=== PATIENT | male | born 1950 | race African-American/Black ===

== ENCOUNTER 2018-09-07 12:08 | Observation (INO) ==
[2018-09-07 13:38] LABS: Basophils % 0.2 % (0.0-0.8); Eosinophils % 0.4 % (0.00-10.9); Hematocrit 40.1 VOL% (42.0-52.0); Hemoglobin 13.1 GM/DL (14.0-18.0); Immature Granulocytes % 0.4 %; Immature Granulocytes Absolute 0.05 #; Lymphocytes # 1.4 10*3/uL (1.4-4.0); Lymphocytes % 12.8 % (21.2-54.2); Mean Corpuscular HGB Conc 32.7 GM/DL (32-36); Mean Corpuscular Hemoglobin 30 PG (27-34); Mean Corpuscular Volume 92.2 FL (87-102); Mean Platelet Volume 11.2 FL (9.6-12.0); Monocytes # 0.7 10*3/uL (0.11-0.8); Monocytes % 5.9 % (1.7-12.7); Neutrophils # 8.9 10*3/uL (1.4-7.4); Neutrophils % 80.3 % (38.7-73.9); Platelet Count 254 T/CUMM (130-400); Red Blood Count 4.35 MC/CUMM (3.8-5.5); Red Cell Distribution Width 13.7 % (9.3-17.3); White Blood Count 11.1 T/CUMM (4-12)
[2018-09-07 13:59] LABS: Albumin 3.7 G/DL (3.4-5.0); Bilirubin,Total 0.4 MG/DL (0.2-1.0); Calcium 9.4 MG/DL (8.5-10.1); Osmolality,Calculated 270.2 MOS/KG (273-304); Potassium 3.9 MMOL/L (3.5-5.1); Thyroid Stimulating Hormone 0.387 uIU/ml (0.358-3.74); Total Protein 8.8 G/DL (6.4-8.3)
[2018-09-07 15:01] LABS: Apearance,Urine CLEAR (Clear); Bilirubin,Urine Negative (Negative); Blood, Urine Negative (Negative); Glucose,Urine (UA) Negative (Negative); Ketones,Urine Negative (Negative); Mucus,Urine Occasional /LPF (Occasional); Nitrite,Urine Negative (Negative); Protein,Urine Negative; RBC,Urine 1 /HPF (0-4); Squamous Epithelial Cell,Urine Occasional /HPF (0-10); Urine Color Yellow (Yellow); Urine Specific Gravity 1.009 (1.001-1.035); Urine Urobilinogen < 2.0 EU/DL (0.2-1.0); WBC,Urine <1 /HPF (0-6)
[2018-09-07] MEDS ORDERED: GLUCAGON 1 MG VIAL IM PRN (15:25)
[2018-09-07] MEDS ORDERED: ONDANSETRON 4 MG/2 ML VIAL IV PRN (15:25)
[2018-09-07] MEDS ORDERED: DEXTROSE 50% 25 GM/50 ML VIAL IV PRN (15:25)
[2018-09-07] MEDS: INSULIN REGULAR 100 UNIT/ML SUBCUT SCH ×2 (17:02→20:51)
[2018-09-07] MEDS: SODIUM CHLORIDE 0.9% 1,000 ML IV SCH (17:07)
[2018-09-07] MEDS: BACLOFEN 10 MG TABLET PO SCH (20:51)
[2018-09-07] MEDS: metFORMIN 500 MG TABLET PO SCH (20:51)
[2018-09-07] MEDS: CARVEDILOL 25 MG TABLET PO SCH (20:51)
[2018-09-08] MEDS: SODIUM CHLORIDE 0.9% 1,000 ML IV SCH (04:29)
[2018-09-08 05:20] LABS: Basophils % 0.1 % (0.0-0.8); Eosinophils # 0.1 10*3/uL (0.0-0.87); Eosinophils % 0.6 % (0.00-10.9); Hematocrit 37.8 VOL% (42.0-52.0); Immature Granulocytes % 0.5 %; Immature Granulocytes Absolute 0.05 #; Lymphocytes % 18.3 % (21.2-54.2); Mean Corpuscular HGB Conc 31.7 GM/DL (32-36); Mean Corpuscular Hemoglobin 29 PG (27-34); Mean Corpuscular Volume 91.5 FL (87-102); Mean Platelet Volume 11.3 FL (9.6-12.0); Monocytes # 0.8 10*3/uL (0.11-0.8); Monocytes % 7.1 % (1.7-12.7); Neutrophils # 7.9 10*3/uL (1.4-7.4); Neutrophils % 73.4 % (38.7-73.9); Platelet Count 235 T/CUMM (130-400); Red Blood Count 4.13 MC/CUMM (3.8-5.5); Red Cell Distribution Width 13.9 % (9.3-17.3); White Blood Count 10.8 T/CUMM (4-12)
[2018-09-08 05:48] LABS: Potassium 3.9 MMOL/L (3.5-5.1)
[2018-09-08] MEDS: INSULIN REGULAR 100 UNIT/ML SUBCUT SCH (07:16)
[2018-09-08 08:21] VITALS: BP 146/73
[2018-09-08] MEDS: metFORMIN 500 MG TABLET PO SCH (08:58)
[2018-09-08] MEDS: BACLOFEN 10 MG TABLET PO SCH (08:58)
[2018-09-08] MEDS: CARVEDILOL 25 MG TABLET PO SCH (08:59)
[2018-09-08] MEDS ORDERED: FUROSEMIDE 20 MG TABLET PO SCH (09:00)
[2018-09-08] MEDS ORDERED: VENLAFAXINE XR 75 MG CAPSULE PO SCH (09:00)
[2018-09-08] MEDS ORDERED: VALSARTAN/HCTZ 160-12.5 MG TABLET PO SCH (09:00)
[2018-09-08] MEDS ORDERED: amLODIPine 10 MG TABLET PO SCH (09:00)
[2018-09-08] MEDS ORDERED: PANTOPRAZOLE 40 MG TABLET PO SCH ×2 (09:00)
[2018-09-08] MEDS ORDERED: FLUoxetine 20 MG CAPSULE PO SCH (09:00)
[2018-09-08] MEDS ORDERED: ATORVASTATIN 20 MG TABLET PO SCH (09:00)
== END 2018-09-08 09:50 | disposition home or self-care (01) ==
LOC: N.ED 12:08 → N.EDINP 12:08 → N.2E 16:15
PROVIDERS: ADMIT Hospitalist; ATTEND Hospitalist

== ENCOUNTER 2019-03-06 19:56 | Observation (INO) ==
[2019-03-06 20:53] LABS: Basophils % 0.2 % (0.0-0.8); Eosinophils # 0.1 10*3/uL (0.0-0.87); Eosinophils % 0.5 % (0.00-10.9); Hematocrit 44.5 VOL% (42.0-52.0); Immature Granulocytes % 0.4 %; Immature Granulocytes Absolute 0.05 #; Lymphocytes # 1.8 10*3/uL (1.4-4.0); Lymphocytes % 14.6 % (21.2-54.2); Mean Corpuscular HGB Conc 31.5 GM/DL (32-36); Mean Corpuscular Volume 91.8 FL (87-102); Mean Platelet Volume 11.1 FL (9.6-12.0); Monocytes % 3.8 % (1.7-12.7); Neutrophils % 80.5 % (38.7-73.9); Platelet Count 220 T/CUMM (130-400); Red Blood Count 4.85 MC/CUMM (3.8-5.5); Red Cell Distribution Width 14.6 % (9.3-17.3); White Blood Count 12.5 T/CUMM (4-12)
[2019-03-06] MEDS ORDERED: SODIUM CHLORIDE 0.9% 500 ML IV STA ×2 (21:02→21:57)
[2019-03-06] MEDS ORDERED: LORazepam 2 MG/1 ML VIAL IV STA (21:02)
[2019-03-06 21:17] LABS: Apearance,Urine CLEAR (Clear); Bilirubin,Urine Negative (Negative); Blood, Urine Negative (Negative); Glucose,Urine (UA) Negative (Negative); Hyaline Casts,Urine 1 /LPF (0-3); Ketones,Urine Negative (Negative); Mucus,Urine Many /LPF (Occasional); Nitrite,Urine Negative (Negative); Protein,Urine Negative; RBC,Urine 2 /HPF (0-4); Squamous Epithelial Cell,Urine Occasional /HPF (0-10); Urine Color Yellow (Yellow); Urine Specific Gravity 1.019 (1.001-1.035); Urine Urobilinogen < 2.0 EU/DL (0.2-1.0); WBC,Urine 1 /HPF (0-6)
[2019-03-06 21:24] LABS: Barbiturates Screen,Urine Negative (Negative); Benzodiazepines Screen,Urine Negative (Negative); Cannabinoid Screen,Urine Negative (Negative); Opiate Screen,Urine Negative (Negative); Phencyclidine Screen,Urine Negative (Negative)
[2019-03-06 21:26] LABS: Albumin 3.7 G/DL (3.4-5.0); Bilirubin,Total 0.5 MG/DL (0.2-1.0); Calcium 9.4 MG/DL (8.5-10.1); Osmolality,Calculated 277.4 MOS/KG (273-304); Total Protein 8.7 G/DL (6.4-8.3)
[2019-03-06] MEDS ORDERED: MAGNESIUM SULF RIDER 2 GM in PREMIX 1 EACH IV STA (21:34)
[2019-03-06] MEDS ORDERED: diphenhydrAMINE CAP 25 MG CAPSULE PO PRN (23:29)
[2019-03-06] MEDS ORDERED: ACETAMINOPHEN 325 MG TABLET PO PRN (23:29)
[2019-03-06] MEDS ORDERED: ONDANSETRON 4 MG/2 ML VIAL IV PRN (23:29)
[2019-03-06] MEDS ORDERED: MORPHINE 4 MG/1 ML VIAL IV PRN (23:29)
[2019-03-06] MEDS ORDERED: NICOTINE 21 MG/24 HR PATCH TRANSDERM PRN (23:29)
[2019-03-07] LABS: Risk Ratio 2.85; Thyroid Stimulating Hormone 0.457 uIU/ml (0.358-3.74); VLDL CHOLESTEROL 22.4 MG/DL
[2019-03-07 05:11] LABS: Albumin 3.3 G/DL (3.4-5.0); Bilirubin,Total 0.9 MG/DL (0.2-1.0); Calcium 9.2 MG/DL (8.5-10.1); Total Protein 7.4 G/DL (6.4-8.3)
[2019-03-07] MEDS: ENOXAPARIN 40 MG/0.4 ML SYRINGE SUBCUT SCH (09:25)
[2019-03-07] MEDS: PANTOPRAZOLE 40 MG TABLET PO SCH (09:25)
[2019-03-07] MEDS ORDERED: LORazepam 0.5 MG TABLET PO ONE (09:42)
[2019-03-07] MEDS: INSULIN LISPRO 100 UNIT/ML SUBCUT SCH ×2 (15:31→20:22)
[2019-03-07] MEDS: metFORMIN 500 MG TABLET PO SCH (16:31)
[2019-03-07] MEDS: amLODIPine 10 MG TABLET PO SCH (16:31)
[2019-03-07] MEDS ORDERED: metFORMIN 500 MG TABLET PO SCH (17:00)
[2019-03-07] MEDS: clonazePAM 0.5 MG TABLET PO SCH (20:21)
[2019-03-07] MEDS: CARVEDILOL 25 MG TABLET PO SCH (20:21)
[2019-03-07] MEDS ORDERED: DONEPEZIL 10 MG TABLET PO SCH (21:00)
[2019-03-07] MEDS ORDERED: ATORVASTATIN 20 MG TABLET PO SCH (21:00)
[2019-03-07] MEDS ORDERED: DONEPEZIL 5 MG TABLET PO SCH (21:00)
[2019-03-08] MEDS: metFORMIN 500 MG TABLET PO SCH (08:17)
[2019-03-08] MEDS: PANTOPRAZOLE 40 MG TABLET PO SCH (08:17)
[2019-03-08] MEDS: amLODIPine 10 MG TABLET PO SCH (08:17)
[2019-03-08] MEDS: clonazePAM 0.5 MG TABLET PO SCH (08:17)
[2019-03-08] MEDS: CARVEDILOL 25 MG TABLET PO SCH (08:17)
[2019-03-08] MEDS: ENOXAPARIN 40 MG/0.4 ML SYRINGE SUBCUT SCH (08:18)
[2019-03-08] MEDS: INSULIN LISPRO 100 UNIT/ML SUBCUT SCH (08:19)
[2019-03-08] MEDS ORDERED: LOSARTAN/HCTZ 50-12.5 MG TABLET PO SCH (09:00)
[2019-03-08] MEDS ORDERED: sitaGLIPtin 25 MG TABLET PO SCH (09:00)
[2019-03-08] MEDS ORDERED: sitaGLIPtin 100 MG TABLET PO SCH (09:00)
[2019-03-08 12:37] VITALS: BP 136/63
== END 2019-03-08 13:20 | disposition home or self-care (01) ==
LOC: N.EDINP 19:56 → N.ED 19:56 → N.ICU 03-07 00:17 → N.5E 03-07 13:11
PROVIDERS: ADMIT Internal Medicine; ATTEND Internal Medicine